=== PATIENT | female | born 1930 ===

== ENCOUNTER 2017-02-14 19:04 | Inpatient (IN) | payer MEDICARE ==
[~2017-02-14] VITALS: Ht 180.3 cm; Wt 63.5 kg
[2017-02-14] MEDS ORDERED: ALBUTEROL2.5 MG/3 M INH (19:08)
[2017-02-14] MEDS ORDERED: ATORVASTATIN CA80 MG ORAL (19:08)
[2017-02-14] MEDS ORDERED: LACTULOSE20 GM/301 ORAL (19:08)
[2017-02-14] MEDS ORDERED: LISINOPRIL40 MG ORAL (19:08)
[2017-02-14] MEDS ORDERED: COLACE100 MG ORAL (19:08)
[2017-02-14] MEDS ORDERED: ATROVENT HFA12.9 GM IH (19:08)
[2017-02-14] MEDS ORDERED: AMLODIPINE BES2.5 MG ORAL (19:08)
[2017-02-14] MEDS ORDERED: NOVOLIN R100 UNIT/1 SUBQ (19:08)
[2017-02-14] MEDS ORDERED: ASPIRIN EC325 MG ORAL (19:08)
--- NOTE | 2017-02-14 19:22 | Emergency Room Report ---
History of Present Illness General Chief Complaint: Altered Level of Consciousness Source: Medical Record Present Illness HPI 86 YOF sent from SNF for "becoming unresponsive" at SNF with ?hypoxia. 911 called. EMS stated low O2 sat, other vitals stable. Patient responsive when they arrived. Allergies: Coded Allergies: METRONIDAZOLE (Verified Allergy, Unknown, 02/14/17) MIDAZOLAM (Verified Allergy, Unknown, 02/14/17) PENICILLINS (Verified Allergy, Unknown, 02/14/17) SULFA (SULFONAMIDE ANTIBIOTICS) (Verified Allergy, Unknown, 02/14/17) Patient History Past Medical History: other - acute respiratory failure on trach, anemia, vascular dementia, HTN, previous CVA Past Surgical History: unable to obtain, other - trach Pertinent Family History: none Social History: Denies: alcohol use, drug use, smoking Now: No Immunizations: UTD Reviewed Nursing Documentation: PMH: Agreed, PSxH: Agreed Nursing Documentation-PMH Hx Cardiac Problems: Yes - Atherosclerosis of aorta, Anemia Hx Hypertension: Yes History Of Psychiatric Problem: Yes - Vascular dementia Review of Systems All Other Systems: limited - unable to obtain, ?dementia Physical Exam Vital Signs Date Time Temp Pulse Resp B/P Pulse Ox O2 Delivery O2 Flow Rate FiO2 02/14/17 18:54 74 20 104/71 100 Ambu-Bag 15.0 Sp02 EP Interpretation: reviewed, normal General Appearance: normal inspection, well appearing, no apparent distress, alert, non-toxic Head: normocephalic, atraumatic Eyes: bilateral eye EOMI, bilateral eye PERRL ENT: normal ENT inspection, other - Trach in place. No air leak Neck: normal inspection, full range of motion, supple, no bony tend Respiratory: normal inspection, lungs clear, normal breath sounds, no rhonchi, no respiratory distress, no retraction, no wheezing Cardiovascular #1: regular rate, rhythm, no edema Gastrointestinal: normal inspection, normal bowel sounds, non tender, soft, no guarding, no hernia Genitourinary: no CVA tenderness Musculoskeletal: normal inspection, back normal, normal range of motion, Ten' s Sign negative Neurologic: normal inspection, alert, responsive, speech normal Psychiatric: normal inspection Skin: normal inspection Lymphatic: normal inspection Medical Decision Making Diagnostic Impression: Primary Impression: Altered level of consciousness Additional Impressions: Sepsis Qualified Codes: A41.9 - Sepsis, unspecified organism Hyperkalemia ER Course 86YO F with episode of AMS. VSS here. Afebrile. Connected to vent. No air leak. ?mucous plug vs sepsis/PNA less likely Labs: Leuks 12k. HyperK. Lactate 2. UA pending CXR with possible right sided PNA Blood Cx pending Empiric Abx given HyperK but no peaked Twaves on ECG. Albuterol given via trach as well as Kayexelate. Endorsed to Dr Lawson for DIONI admission at 826pm EKG Diagnostic Results Rate: normal, other - PVCs Rhythm: NSR ST Segments: no acute changes ASA given to the pt in ED: No Rhythm Strip Diag. Results EP Interpretation: yes Rate: 95 Rhythm: NSR, no ectopy Chest X-Ray Diagnostic Results EP Interpretation: Yes Findings: no pneumothorax, no acute cardiopulmonary disease, other - Rigth sided infilitrate Number of Views: 1 Last Vital Signs Date Time Temp Pulse Resp B/P Pulse Ox O2 Delivery O2 Flow Rate FiO2 02/14/17 18:54 74 20 104/71 100 Ambu-Bag 15.0 Status: improved Disposition: ADMITTED INPATIENT Condition: Serious EDMAR ARRIAGA M.D. Feb 14, 2017 19:22
[2017-02-14 19:59] LABS: BASOPHILS % (AUTO) 1.3 % (0.0-2.0); EOSINOPHILS % (AUTO) 1.1 % (0.0-3.0); LYMPHOCYTES % (AUTO) 19.3 % (20.0-45.0); MEAN CORPUSCULAR HEMOGLOBIN 32.2 PG (27.0-31.0); MEAN CORPUSCULAR HGB CONC 32.8 G/DL (32.0-36.0); MEAN CORPUSCULAR VOLUME 98 FL (80-99); MEAN PLATELET VOLUME 5.7 FL (6.5-10.1); MONOCYTES % (AUTO) 6.9 % (1.0-10.0); NEUTROPHILS % (AUTO) 71.3 % (45.0-75.0); PLATELET COUNT 274 K/UL (150-450); RED BLOOD COUNT 3.12 M/UL (4.20-5.40); RED CELL DISTRIBUTION WIDTH 16.2 % (11.6-14.8); WHITE BLOOD COUNT 11.9 K/UL (4.8-10.8)
[2017-02-14] MEDS ORDERED: LORazepam 1mg tab ORAL ONE (20:00)
[2017-02-14 20:02] VITALS: BP 94/51
[2017-02-14 20:15] LABS: TROPONIN I < 0.30 ng/mL (<=0.30)
[2017-02-14] MEDS ORDERED: Haloperidol 5mg/ml Inj IM ONE (20:15)
[2017-02-14 20:18] LABS: ALANINE AMINOTRANSFERASE 46 U/L (3-33); ALBUMIN/GLOBULIN RATIO 0.4 (1.0-2.7); ASPARTATE AMINO TRANSFERASE 35 U/L (5-40); CALCIUM 10.3 mg/dL (8.6-10.2); CARBON DIOXIDE 39 mEQ/L (20-30); CREATININE 0.7 mg/dL (0.5-0.9); HEMOLYSIS 24; TOTAL PROTEIN 9.1 g/dL (6.6-8.7)
[2017-02-14 20:19] LABS: ANION GAP 6 (5-15); CHLORIDE 102 mEQ/L (98-107); POTASSIUM 5.8 mEQ/L (3.4-4.9); SODIUM 147 mEQ/L (135-145)
[2017-02-14 20:22] LABS: REFLEX LACTIC ACID YES OR NO YES
[2017-02-14] MEDS ORDERED: Sodium Polystyrene Sulfonate 15gm Powder ORAL ONE (20:30)
[2017-02-14] MEDS ORDERED: Clindamycin 900mg 50 ML IVPB ONE (20:30)
[2017-02-14] MEDS ORDERED: Albuterol ud Inhalation HHN ONE (20:30)
[2017-02-14] MEDS ORDERED: Vancomycin 1 GM in NS 275 ML IVPB ONE (20:30)
[2017-02-14] MEDS ORDERED: Vancomycin 1gm inj IVPB ONE (20:34)
[2017-02-14 21:06] LABS: KETONES,URINE NEGATIVE (NEGATIVE); LEUKOCYTE ESTERASE ,URINE 3+ (NEGATIVE); NITRITE,URINE POSITIVE (NEGATIVE); PH,URINE 6 (4.5-8.0); PROTEIN,URINE 3+ (NEGATIVE); UROBILINOGEN,URINE NORMAL MG/DL (0.0-1.0)
[2017-02-14 21:22] LABS: APPEARANCE,URINE VERY CLOUDY
[2017-02-14 21:23] LABS: BACTERIA,URINE MANY /HPF; RBC,URINE TNTC /HPF (0 - 2); SQUAMOUS EPITHELIAL CELL,UR MANY /LPF (NONE/OCC); WBC,URINE TNTC /HPF (0 - 2)
[2017-02-14 21:30] VITALS: BP 127/63
[2017-02-15] VITALS: BP 122/64
[2017-02-15] MEDS ORDERED: Acetaminophen 500mg (ES) tab ORAL PRN (00:45)
[2017-02-15] MEDS ORDERED: Ipratropium 0.02% Inh Soln 2.5ml UD HHN PRN ×2 (01:00)
[2017-02-15] MEDS ORDERED: DuoNeb 0.5-3(2.5)mg/3ml neb HHN PRN (01:45)
[2017-02-15] MEDS ORDERED: Acetaminophen 650mg/20.3ml GT PRN ×3 (02:45→07:30)
[2017-02-15 04:00] VITALS: BP 118/63
[2017-02-15 04:31] LABS: BASOPHILS % (AUTO) 0.6 % (0.0-2.0); EOSINOPHILS % (AUTO) 0.2 % (0.0-3.0); LYMPHOCYTES % (AUTO) 23.8 % (20.0-45.0); MEAN CORPUSCULAR HEMOGLOBIN 30.1 PG (27.0-31.0); MEAN CORPUSCULAR HGB CONC 31.7 G/DL (32.0-36.0); MEAN CORPUSCULAR VOLUME 95 FL (80-99); MEAN PLATELET VOLUME 5.8 FL (6.5-10.1); MONOCYTES % (AUTO) 4.1 % (1.0-10.0); NEUTROPHILS % (AUTO) 71.3 % (45.0-75.0); PLATELET COUNT 280 K/UL (150-450); RED BLOOD COUNT 2.95 M/UL (4.20-5.40); RED CELL DISTRIBUTION WIDTH 16.2 % (11.6-14.8); WHITE BLOOD COUNT 10.1 K/UL (4.8-10.8)
[2017-02-15 04:56] LABS: ALANINE AMINOTRANSFERASE 39 U/L (3-33); ALBUMIN/GLOBULIN RATIO 0.4 (1.0-2.7); ANION GAP 12 (5-15); ASPARTATE AMINO TRANSFERASE 29 U/L (5-40); CALCIUM 9.6 mg/dL (8.6-10.2); CARBON DIOXIDE 33 mEQ/L (20-30); CHLORIDE 100 mEQ/L (98-107); CREATININE 0.6 mg/dL (0.5-0.9); HEMOLYSIS 1; POTASSIUM 4.4 mEQ/L (3.4-4.9); SODIUM 145 mEQ/L (135-145); TOTAL PROTEIN 8.6 g/dL (6.6-8.7)
[2017-02-15] MEDS: NovoLOG Insulin Flexpen SUBQ SCH ×3 (06:07→18:00)
[2017-02-15] MEDS ORDERED: NovoLOG Insulin Flexpen SUBQ SCH (06:30)
[2017-02-15] MEDS ORDERED: Glucagon 1mg Inj IV PRN (07:30)
[2017-02-15 08:00] VITALS: BP 102/59
[2017-02-15] MEDS ORDERED: Atorvastatin 80mg tab ORAL SCH (09:00)
[2017-02-15] MEDS ORDERED: Levofloxacin 500mg tab GT SCH (09:00)
[2017-02-15] MEDS ORDERED: Aspirin EC 325mg tab ORAL SCH (09:00)
[2017-02-15] MEDS ORDERED: Lactulose 20gm/30ml UDC ORAL SCH (09:00)
--- NOTE | 2017-02-15 09:00 | History & Physical ---
History and Physical History & Physicial HPI 86 Year old sent from [facility] for ALOC at [facility]. 911 called. Patient noted to have reduced oxygen saturations. Patient responsive when they arrived. she appears slightly more withdrawn this morning. Allergies: METRONIDAZOLE (Verified Allergy, Unknown, 02/14/17) MIDAZOLAM (Verified Allergy, Unknown, 02/14/17) PENICILLINS (Verified Allergy, Unknown, 02/14/17) SULFA (SULFONAMIDE ANTIBIOTICS) (Verified Allergy, Unknown, 02/14/17) Past Medical History: respiratory failure on trach, anemia, vascular dementia, HTN, previous CVA, atherosclerosis Past Surgical History: GT, trach Pertinent Family History: none Social History: Denies: alcohol use, drug use, smoking; resides at [facility] Reviewed of systems: unable Physical exam WDWN NAD clear breath sounds bilaterally without rhonchi or wheeze trach [id number] without MRG NABS nontender no HSM, GT no CCE slightly withdrawn Laboratory Tests Test 02/14/17 19:45 02/14/17 19:59 02/14/17 20:16 02/15/17 04:00 White Blood Count 11.9 K/UL (4.8-10.8) H 10.1 K/UL (4.8-10.8) Red Blood Count 3.12 M/UL (4.20-5.40) L 2.95 M/UL (4.20-5.40) L Hemoglobin 10.0 G/DL (12.0-16.0) L 8.9 G/DL (12.0-16.0) L Hematocrit 30.6 % (37.0-47.0) L 28.0 % (37.0-47.0) L Mean Corpuscular Volume 98 FL (80-99) 95 FL (80-99) Mean Corpuscular Hemoglobin 32.2 PG (27.0-31.0) H 30.1 PG (27.0-31.0) Mean Corpuscular Hemoglobin Concent 32.8 G/DL (32.0-36.0) 31.7 G/DL (32.0-36.0) L Red Cell Distribution Width 16.2 % (11.6-14.8) H 16.2 % (11.6-14.8) H Platelet Count 274 K/UL (150-450) 280 K/UL (150-450) Mean Platelet Volume 5.7 FL (6.5-10.1) L 5.8 FL (6.5-10.1) L Neutrophils (%) (Auto) 71.3 % (45.0-75.0) 71.3 % (45.0-75.0) Lymphocytes (%) (Auto) 19.3 % (20.0-45.0) L 23.8 % (20.0-45.0) Monocytes (%) (Auto) 6.9 % (1.0-10.0) 4.1 % (1.0-10.0) Eosinophils (%) (Auto) 1.1 % (0.0-3.0) 0.2 % (0.0-3.0) Basophils (%) (Auto) 1.3 % (0.0-2.0) 0.6 % (0.0-2.0) Sodium Level 147 mEQ/L (135-145) H 145 mEQ/L (135-145) Potassium Level 5.8 mEQ/L (3.4-4.9) H 4.4 mEQ/L (3.4-4.9) Chloride Level 102 mEQ/L (98-107) 100 mEQ/L (98-107) Carbon Dioxide Level 39 mEQ/L (20-30) H 33 mEQ/L (20-30) H Anion Gap 6 (5-15) 12 (5-15) Blood Urea Nitrogen 53 mg/dL (7-23) H 54 mg/dL (7-23) H Creatinine 0.7 mg/dL (0.5-0.9) 0.6 mg/dL (0.5-0.9) Estimat Glomerular Filtration Rate mL/min (>60) mL/min (>60) Glucose Level 149 mg/dL (74-106) H 91 mg/dL (74-106) Lactic Acid Level 2.10 mmol/L (0.66-2.22) 2.30 mmol/L (0.66-2.22) H Calcium Level 10.3 mg/dL (8.6-10.2) H 9.6 mg/dL (8.6-10.2) Total Bilirubin 0.2 mg/dL (0.0-1.2) 0.3 mg/dL (0.0-1.2) Aspartate Amino Transf (AST/SGOT) 35 U/L (5-40) 29 U/L (5-40) Alanine Aminotransferase (ALT/SGPT) 46 U/L (3-33) H 39 U/L (3-33) H Alkaline Phosphatase 120 U/L (35-104) H 101 U/L (35-104) Total Creatine Kinase 30 U/L (26-140) Creatine Kinase MB 4.0 ng/mL (< 3.8) H Creatine Kinase MB Relative Index 13.3 Troponin I < 0.30 ng/mL (<=0.30) Total Protein 9.1 g/dL (6.6-8.7) H 8.6 g/dL (6.6-8.7) Albumin 2.8 g/dL (3.5-5.2) L 2.7 g/dL (3.5-5.2) L Globulin 6.3 g/dL 5.9 g/dL Albumin/Globulin Ratio 0.4 (1.0-2.7) L 0.4 (1.0-2.7) L Urine Color Pale yellow Urine Appearance Very cloudy Urine pH 6 (4.5-8.0) Urine Specific [place] 1.015 (1.005-1.035) Urine Protein 3+ (NEGATIVE) H Urine Glucose (UA) Negative (NEGATIVE) Urine Ketones Negative (NEGATIVE) Urine Occult Blood 5+ (NEGATIVE) H Urine Nitrite Positive (NEGATIVE) H Urine Bilirubin Negative (NEGATIVE) Urine Urobilinogen Normal MG/DL (0.0-1.0) Urine Leukocyte Esterase 3+ (NEGATIVE) H Urine RBC Tntc /HPF (0 - 2) H Urine WBC Tntc /HPF (0 - 2) H Urine Squamous Epithelial Cells Many /LPF (NONE/OCC) H Urine Bacteria Many /HPF (NONE) H IMPRESSION UTI anemia azotemia respiratory failure trach gt PLAN antibiotics hydrate head CT ventilator snf meds dc back when stable impression, plan, and exam edited and reviewed in detail care discussed with BERNY CANTOR Feb 15, 2017 09:00
[2017-02-15] MEDS: Zinc Sulfate 220mg cap GT SCH (09:09)
[2017-02-15] MEDS: Lactulose 20gm/30ml UDC GT SCH ×3 (09:09→18:10)
[2017-02-15] MEDS: Ascorbic Acid 500mg tab GT SCH ×2 (09:09→18:10)
[2017-02-15] MEDS: Docusate 100mg tablet GT SCH ×2 (09:10→18:10)
[2017-02-15] MEDS: Atorvastatin 80mg tab GT SCH (09:10)
[2017-02-15] MEDS ORDERED: Cefepime HCl 1 GM in NS 55 ML IVPB SCH (10:00)
[2017-02-15] MEDS: Meropenem 500 MG in NS 55 ML IVPB SCH ×2 (13:47→22:12)
[2017-02-15 16:00] VITALS: BP 98/55
[2017-02-15] MEDS ORDERED: Tubing IV Secondary IV ONE (17:37)
[2017-02-15] MEDS ORDERED: 1/2 NS 1000ml IV ONE (17:37)
--- NOTE | 2017-02-15 18:48 | Consultation ---
DATE OF CONSULTATION: 02/15/2017 INFECTIOUS DISEASES CONSULTATION CONSULTING PHYSICIAN: Rehana Vines M.D. REFERRING PHYSICIAN: Jimmy Lawson M.D. REASON FOR CONSULTATION: Urinary tract infection. HISTORY OF PRESENTING ILLNESS: This is an 86-year-old lady with history of respiratory failure, status post tracheostomy, hypertension, and CVA, who came in with altered level of consciousness. She was seen in [facility], where she was found to have a urinary tract infection and an Infectious Diseases consultation has been obtained for antibiotics. PAST MEDICAL HISTORY: 1. History of respiratory failure, status post tracheostomy. 2. Anemia. 3. Dementia. 4. Hypertension. 5. CVA. 6. Atherosclerosis. 7. Status post G-tube placement. MEDICATIONS: As an inpatient, the patient is on docusate, ascorbic acid, Coreg, multivitamin, Prevacid, zinc sulfate, amlodipine, aspirin, Lipitor, lactulose, Levaquin, Tylenol, Glucagon, insulin, albuterol, and Atrovent. ALLERGIES: 1. Penicillin. 2. Sulfa. 3. Midazolam. 4. Flagyl. SOCIAL HISTORY: No history of smoking, alcohol, or drug use. FAMILY HISTORY: Unknown. REVIEW OF SYSTEMS: Unable to obtain currently. PHYSICAL EXAMINATION: VITAL SIGNS: Temperature of 97.9 degrees, T-max of 97.9 degrees, pulse of 80, respiratory rate 22, blood pressure 102/59, and O2 saturation of 98%. HEENT: Pupils equally reactive to light and accommodation. Mouth appears clean without thrush. NECK: Supple. No adenopathy. No JVD. Tracheostomy site appears clean. CARDIOVASCULAR: Regular rate and rhythm. No murmurs. LUNGS: Clear to auscultation bilaterally. No crackles. No wheezes. ABDOMEN: Soft and nontender. No organomegaly. G-tube site appears clean. EXTREMITIES: No cyanosis, no clubbing, and no edema. LABORATORY DATA: White count of 11.9 yesterday, white count of 10.1 today, hemoglobin 8.9, hematocrit 28, MCV 95, and platelet count of 218,000 with neutrophils of 71%. Sodium 145, potassium 4.4, chloride 100, bicarb 33, BUN 54, creatinine 0.6, glucose 91, and calcium 9.6. Total bilirubin 0.3. AST 29, ALT 39, and alkaline phosphatase 101. Total protein 8.6. Albumin 2.7. UA is showing [id number]-count white cells. Urine cultures are pending. Chest x-ray showed a possible right-sided infiltrate. ASSESSMENT: 1. This is an 86-year-old lady with history of respiratory failure, status post tracheostomy, hypertension, cerebrovascular accident, who comes in and was found to have a urinary tract infection. 2. She also probably has pneumonia. 3. Hypertension. PLAN: 1. discontinue Levaquin. 2. We will start the patient on meropenem. 3. We will follow up cultures and adjust antibiotics accordingly. I would like to thank, Dr. Lawson, for this consultation. Rehana Vines M.D. DR: ERMELINDA JOB#: [id number] CC: Jimmy Lawson M.D.
[2017-02-15 20:00] VITALS: BP 121/69
[2017-02-16] VITALS (7 sets, daily range): BP systolic 118–157; BP diastolic 63–75
[2017-02-16] MEDS: NovoLOG Insulin Flexpen SUBQ SCH ×4 (00:21→18:05)
[2017-02-16 04:30] LABS: MEAN CORPUSCULAR HEMOGLOBIN 29.5 PG (27.0-31.0); MEAN CORPUSCULAR HGB CONC 32.4 G/DL (32.0-36.0); MEAN CORPUSCULAR VOLUME 91 FL (80-99); MEAN PLATELET VOLUME 6.2 FL (6.5-10.1); PLATELET COUNT 215 K/UL (150-450); RED BLOOD COUNT 2.69 M/UL (4.20-5.40); RED CELL DISTRIBUTION WIDTH 16.1 % (11.6-14.8); WHITE BLOOD COUNT 6.7 K/UL (4.8-10.8)
[2017-02-16 04:47] LABS: ANION GAP 12 (5-15); CALCIUM 8.8 mg/dL (8.6-10.2); CARBON DIOXIDE 32 mEQ/L (20-30); CHLORIDE 100 mEQ/L (98-107); CREATININE 0.5 mg/dL (0.5-0.9); HEMOLYSIS 1; SODIUM 144 mEQ/L (135-145)
[2017-02-16 04:56] LABS: POTASSIUM 2.7 mEQ/L (3.4-4.9)
[2017-02-16] MEDS: Meropenem 500 MG in NS 55 ML IVPB SCH ×3 (05:47→20:41)
[2017-02-16] MEDS: KCl 10% 40mEq/30ml liquid GT SCH ×2 (06:59→10:36)
--- NOTE | 2017-02-16 07:09 | Infectious Diseases Prog Note ---
Assessment/Plan Assessment/Plan A; UTI VDRF Dementia Anemia s/p tracheostomy s/p GT Penicillin allergy P; continue Meropenem Subjective ROS Limited/Unobtainable: Yes Allergies: Coded Allergies: METRONIDAZOLE (Verified Allergy, Unknown, 02/14/17) MIDAZOLAM (Verified Allergy, Unknown, 02/14/17) PENICILLINS (Verified Allergy, Unknown, 02/14/17) SULFA (SULFONAMIDE ANTIBIOTICS) (Verified Allergy, Unknown, 02/14/17) Objective Vital Signs Last 24 Hour Vital Signs Date Time Temp Pulse Resp B/P Pulse Ox O2 Delivery O2 Flow Rate FiO2 02/16/17 05:01 80 24 30 02/16/17 04:00 30 02/16/17 04:00 96.8 68 22 157/70 100 Mechanical Ventilator 30 02/16/17 03:35 48 02/16/17 02:55 92 26 30 02/16/17 00:58 86 25 30 02/16/17 00:41 97.9 73 24 155/75 100 Mechanical Ventilator 30 02/16/17 00:00 30 02/15/17 23:30 73 02/15/17 22:59 84 24 30 02/15/17 20:50 79 24 30 02/15/17 20:46 84 145/76 02/15/17 20:00 84 02/15/17 20:00 97.7 86 18 121/69 100 Mechanical Ventilator 30 02/15/17 20:00 30 02/15/17 19:44 88 34 30 02/15/17 16:42 72 17 30 02/15/17 16:00 97.9 73 18 98/55 98 Mechanical Ventilator 30 02/15/17 16:00 30 02/15/17 16:00 73 02/15/17 14:39 67 20 30 02/15/17 13:15 68 22 30 02/15/17 12:04 30 02/15/17 12:00 75 02/15/17 11:12 80 22 30 02/15/17 09:14 75 23 30 02/15/17 09:00 84 102/59 02/15/17 09:00 84 102/59 02/15/17 08:00 82 02/15/17 08:00 97.9 84 22 102/59 98 Mechanical Ventilator 30 02/15/17 08:00 30 02/15/17 07:10 78 19 30 Height (Feet): 5 Height (Inches): 11.00 Weight (Pounds): 140 HEENT: status post trach Respiratory/Chest: lungs clear, other - on ventilator Cardiovascular: normal rate Abdomen: soft, non tender, other - GT feeding Extremities: no edema Neurologic/Psychiatric: other - sleeping Microbiology Date/Time Source Procedure Growth Status 02/14/17 19:25 Blood Blood Culture - Preliminary NO GROWTH AFTER 24 HOURS Resulted 02/14/17 19:15 Blood Blood Culture - Preliminary NO GROWTH AFTER 24 HOURS Resulted Laboratory Tests Test 02/16/17 03:15 White Blood Count 6.7 K/UL (4.8-10.8) Red Blood Count 2.69 M/UL (4.20-5.40) L Hemoglobin 7.9 G/DL (12.0-16.0) L Hematocrit 24.5 % (37.0-47.0) L Mean Corpuscular Volume 91 FL (80-99) Mean Corpuscular Hemoglobin 29.5 PG (27.0-31.0) Mean Corpuscular Hemoglobin Concent 32.4 G/DL (32.0-36.0) Red Cell Distribution Width 16.1 % (11.6-14.8) H Platelet Count 215 K/UL (150-450) Mean Platelet Volume 6.2 FL (6.5-10.1) L Neutrophils (%) (Auto) % (45.0-75.0) Lymphocytes (%) (Auto) % (20.0-45.0) Monocytes (%) (Auto) % (1.0-10.0) Eosinophils (%) (Auto) % (0.0-3.0) Basophils (%) (Auto) % (0.0-2.0) Sodium Level 144 mEQ/L (135-145) Potassium Level 2.7 mEQ/L (3.4-4.9) *L Chloride Level 100 mEQ/L (98-107) Carbon Dioxide Level 32 mEQ/L (20-30) H Anion Gap 12 (5-15) Blood Urea Nitrogen 46 mg/dL (7-23) H Creatinine 0.5 mg/dL (0.5-0.9) Estimat Glomerular Filtration Rate mL/min (>60) Glucose Level 150 mg/dL (74-106) H Calcium Level 8.8 mg/dL (8.6-10.2) Current Medications Medications (Trade) Dose Ordered Sig/Abdelrahman Route PRN Reason Start Time Stop Time Status Last Admin Dose Admin Acetaminophen (Tylenol) 650 mg Q4H PRN GT Moderate Pain (Pain Scale 4-6) 02/15/17 07:30 03/17/17 07:29 02/16/17 02:13 Acetaminophen 500 mg 500 mg Q6H PRN GT mild pain/Temp > 100.5 02/15/17 07:16 03/17/17 02:44 Albuterol/ Ipratropium (DuoNeb 0.5-3(2.5)mg/3ml) 3 ml Q4H PRN HHN shortness of breath 02/15/17 01:45 02/20/17 01:44 Amlodipine Besylate (Norvasc) 10 mg DAILY GT 02/15/17 09:00 03/17/17 08:59 Ascorbic Acid (Vitamin C) 500 mg BID GT 02/15/17 09:00 03/17/17 08:59 02/15/17 18:10 Aspirin (ASA) 325 mg DAILY GT 02/15/17 09:00 03/17/17 08:59 02/15/17 09:09 Atorvastatin Calcium (Lipitor) 80 mg DAILY GT 02/15/17 09:00 03/17/17 08:59 02/15/17 09:10 Carvedilol (Coreg) 3.125 mg EVERY 12 HOURS GT 02/15/17 09:00 03/17/17 08:59 02/15/17 20:46 Dextrose (Dextrose 50%) STAT PRN IV Hypoglycemia 02/15/17 00:45 03/17/17 00:44 Docusate Sodium (Colace) 100 mg BID GT 02/15/17 09:00 03/17/17 08:59 02/15/17 18:10 Glucagon (Glucagon) 1 mg PRN PRN IV BS<70 02/15/17 07:30 03/17/17 07:29 Insulin Aspart (NovoLOG) per DR. Lawson to fol... EVERY 6 HOURS SUBQ 02/15/17 18:00 03/17/17 17:59 02/16/17 00:21 Ipratropium [place] (Atrovent) 500 mcg Q6H PRN HHN Shortness of Breath 02/15/17 01:00 02/20/17 00:59 Lactulose (Cephulac) 20 gm TID GT 02/15/17 09:00 03/17/17 08:59 02/15/17 18:10 Lansoprazole (Prevacid) 30 mg DAILY GT 02/15/17 09:00 03/17/17 08:59 02/15/17 09:10 Meropenem/Sodium Chloride (Merrem/Sodium Chloride) 55 ml @ 110 mls/hr EVERY 8 HOURS IVPB 02/15/17 14:00 02/20/17 13:59 02/16/17 05:47 Multivitamins (Multivitamins) 1 tab DAILY ORAL 02/15/17 09:00 03/17/17 08:59 02/15/17 09:09 Potassium Chloride (KCl 10% 40mEq Oral solution) 40 meq Q4H GT 02/16/17 06:30 02/16/17 10:31 02/16/17 06:59 Sodium Chloride 1,000 ml @ 100 mls/hr Q10H IV 02/15/17 10:00 03/17/17 09:59 02/16/17 05:47 Zinc Sulfate (Zinc Sulfate) 220 mg DAILY GT 02/15/17 09:00 03/17/17 08:59 02/15/17 09:09 JOSE NOBLE Feb 16, 2017 07:09
[2017-02-16 08:05] LABS: BASOPHILS % (AUTO) 1.5 % (0.0-2.0); EOSINOPHILS % (AUTO) 2.2 % (0.0-3.0); LYMPHOCYTES % (AUTO) 38.7 % (20.0-45.0); MEAN CORPUSCULAR HEMOGLOBIN 29.7 PG (27.0-31.0); MEAN CORPUSCULAR HGB CONC 32.4 G/DL (32.0-36.0); MEAN CORPUSCULAR VOLUME 92 FL (80-99); MEAN PLATELET VOLUME 6.2 FL (6.5-10.1); MONOCYTES % (AUTO) 5.8 % (1.0-10.0); NEUTROPHILS % (AUTO) 51.8 % (45.0-75.0); PLATELET COUNT 226 K/UL (150-450); RED BLOOD COUNT 2.73 M/UL (4.20-5.40); RED CELL DISTRIBUTION WIDTH 16.3 % (11.6-14.8); WHITE BLOOD COUNT 6.7 K/UL (4.8-10.8)
[2017-02-16] MEDS: Zinc Sulfate 220mg cap GT SCH (08:10)
[2017-02-16] MEDS: Docusate 100mg tablet GT SCH ×2 (08:10→18:00)
[2017-02-16] MEDS: Ascorbic Acid 500mg tab GT SCH ×2 (08:10→18:04)
[2017-02-16] MEDS: Lactulose 20gm/30ml UDC GT SCH ×3 (08:10→18:00)
[2017-02-16] MEDS: Atorvastatin 80mg tab GT SCH (08:12)
[2017-02-16] MEDS ORDERED: 1/2 NS 1000ml IV ONE (08:37)
--- NOTE | 2017-02-16 09:19 | General Progress Note ---
Assessment/Plan Assessment/Plan IMPRESSION UTI anemia azotemia respiratory failure trach gt PLAN antibiotics hydrate potassium transfuse head CT ventilator snf meds dc back when stable, possibly in am impression, plan, and exam edited and reviewed in detail care discussed with RN Subjective ROS Limited/Unobtainable: Yes Allergies: Coded Allergies: METRONIDAZOLE (Verified Allergy, Unknown, 02/14/17) MIDAZOLAM (Verified Allergy, Unknown, 02/14/17) PENICILLINS (Verified Allergy, Unknown, 02/14/17) SULFA (SULFONAMIDE ANTIBIOTICS) (Verified Allergy, Unknown, 02/14/17) Objective Last 24 Hour Vital Signs Date Time Temp Pulse Resp B/P Pulse Ox O2 Delivery O2 Flow Rate FiO2 02/16/17 08:11 64 137/74 02/16/17 08:11 64 137/74 02/16/17 08:00 97.0 72 21 137/74 100 Mechanical Ventilator 30 02/16/17 08:00 69 02/16/17 08:00 30 02/16/17 07:28 58 21 30 02/16/17 05:01 80 24 30 02/16/17 04:00 30 02/16/17 04:00 96.8 68 22 157/70 100 Mechanical Ventilator 30 02/16/17 03:35 48 02/16/17 02:55 92 26 30 02/16/17 00:58 86 25 30 02/16/17 00:41 97.9 73 24 155/75 100 Mechanical Ventilator 30 02/16/17 00:00 30 02/15/17 23:30 73 02/15/17 22:59 84 24 30 02/15/17 20:50 79 24 30 02/15/17 20:46 84 145/76 02/15/17 20:00 84 02/15/17 20:00 97.7 86 18 121/69 100 Mechanical Ventilator 30 02/15/17 20:00 30 02/15/17 19:44 88 34 30 02/15/17 16:42 72 17 30 02/15/17 16:00 97.9 73 18 98/55 98 Mechanical Ventilator 30 02/15/17 16:00 30 02/15/17 16:00 73 02/15/17 14:39 67 20 30 02/15/17 13:15 68 22 30 02/15/17 12:04 30 02/15/17 12:00 75 02/15/17 11:12 80 22 30 Intake and Output 02/15/17 02/16/17 19:00 07:00 Intake Total 1360 ml 2025 ml Output Total 200 ml 1351 ml Balance 1160 ml 674 ml Intake Free Water 100 ml 50 ml IV Total 800 ml 1315 ml Tube Feeding 410 ml 610 ml Other 50 ml 50 ml Output Urine Total 200 ml 1350 ml Stool Total 1 ml # Bowel Movements 1 1 Laboratory Tests 02/16/17 03:15: White Blood Count 6.7, Red Blood Count 2.69L, Hemoglobin 7.9L, Hematocrit 24.5L , Mean Corpuscular Volume 91, Mean Corpuscular Hemoglobin 29.5, Mean Corpuscular Hemoglobin Concent 32.4, Red Cell Distribution Width 16.1H, Platelet Count 215, Mean Platelet Volume 6.2L, Neutrophils (%) (Auto) , Lymphocytes (%) (Auto) , Monocytes (%) (Auto) , Eosinophils (%) (Auto) , Basophils (%) (Auto) , Sodium Level 144, Potassium Level 2.7*L, Chloride Level 100, Carbon Dioxide Level 32H, Anion Gap 12, Blood Urea Nitrogen 46H, Creatinine 0.5, Estimat Glomerular Filtration Rate , Glucose Level 150H, Calcium Level 8.8 02/16/17 07:50: White Blood Count 6.7, Red Blood Count 2.73L, Hemoglobin 8.1L, Hematocrit 25.1L , Mean Corpuscular Volume 92, Mean Corpuscular Hemoglobin 29.7, Mean Corpuscular Hemoglobin Concent 32.4, Red Cell Distribution Width 16.3H, Platelet Count 226, Mean Platelet Volume 6.2L, Neutrophils (%) (Auto) 51.8, Lymphocytes (%) (Auto) 38.7, Monocytes (%) (Auto) 5.8, Eosinophils (%) (Auto) 2.2, Basophils (%) (Auto) 1.5 Height (Feet): 5 Height (Inches): 11.00 Weight (Pounds): 140 Objective WDWN NAD clear breath sounds bilaterally without rhonchi or wheeze; trach [id number] without MRG NABS nontender no HSM; GT no CCE nonfocal BERNY GARBER Feb 16, 2017 09:19
[2017-02-16] MEDS ORDERED: Tubing Blood Filter IV ONE (20:59)
[2017-02-16] MEDS ORDERED: NS 275ml ONE (20:59)
--- NOTE | 2017-02-17 08:05 | Diagnostic Imaging Report ---
Indication: Shortness of breath Technique: XRAY CHEST 1 V Comparison: None Findings: Examination is limited by patient rotation. Tracheostomy is present. Cardiac silhouette is prominent. Atherosclerotic changes are seen. Bilateral interstitial and bibasilar linear opacities are noted. There is slight elevation of the right hemidiaphragm. Degenerative changes of the spine are noted. Impression: Patient rotation limiting evaluation. Mild bilateral interstitial probable edema. Bibasilar atelectasis with infiltrate or small effusion in the right base not excluded. Clinical correlation/followup recommended.
--- NOTE | 2017-02-17 08:45 | Diagnostic Imaging Report ---
Indication: Cerebrovascular accident Technique: Continuous helical CT scanning of the head was performed utilizing automated exposure control without intravenous contrast material. Axial and coronal reconstructions were obtained. Comparison: None available CT dose: Total DLP 1404 mGycm; CTDI vol 70.4 mGy Findings: There is no acute intracranial hemorrhage, mass effect or cortical edema. The ventricles, cisterns and sulci are prominent consistent with atrophy. Periventricular hypoattenuation is seen, a nonspecific finding. There is a 7 mm linear calcification of the right parietal lobe. There is an old lacunar infarct of the right caudate head. The posterior fossa and fourth ventricle are unremarkable. Sellar and suprasellar regions are grossly unremarkable. Right mastoids are opacified. No focal lesions of the bony calvarium or soft tissues of the scalp are seen. Impression: No evidence of acute intracranial hemorrhage, mass effect or cortical edema. MRI may be obtained for more sensitive evaluation as clinically indicated. Atrophy and nonspecific periventricular hypoattenuation suggestive of chronic ischemic microvascular changes. Lacunar infarct of the right caudate head. Approximately 7 mm area of linear increased density and calcification in the right parietal lobe may be postinflammatory/granulomatous. Comparison to prior study should be made if available. Followup recommended. The CT scanner at [facility] is accredited by the [employer] and the scans are performed using protocols designed to limit radiation exposure to as low as reasonably achievable to attain images of sufficient resolution adequate for diagnostic evaluation.
--- NOTE | 2017-02-17 09:31 | Discharge Summary ---
Discharge Summary Hospital Course Date of Admission Feb 14, 2017 at 20:46 Date of Discharge Feb 16, 2017 at 21:00 Admitting Diagnosis hypoxia ARSENIO Gonsalez is a 86 year old female who was admitted on Feb 14, 2017 at 20:46 for Hypoxia EMS stated low O2 sat, other vitals stable. Patient responsive when they arrived. Patient History Past Medical History: other - acute respiratory failure on trach, anemia, vascular dementia, HTN, previous CVA Past Surgical History: unable to obtain, other - trach Pertinent Family History: none Social History: Denies: alcohol use, drug use, smoking Now: No Immunizations: UTD Reviewed Nursing Documentation: PMH: Agreed, PSxH: Agreed Nursing Documentation-PMH Hx Cardiac Problems: Yes - Atherosclerosis of aorta, Anemia Hx Hypertension: Yes History Of Psychiatric Problem: Yes - Vascular dementia Consultations INFECTIOUS DISEASE CONSULTATION: Thee Tellez M.D. Procedures Service Date: 02/15/17 Procedure: CT Head no Contrast Indication: Cerebrovascular accident Impression: No evidence of acute intracranial hemorrhage, mass effect or cortical edema. MRI may be obtained for more sensitive evaluation as clinically indicated. Atrophy and nonspecific periventricular hypoattenuation suggestive of chronic ischemic microvascular changes. Lacunar infarct of the right caudate head. Approximately 7 mm area of linear increased density and calcification in the right parietal lobe may be postinflammatory/granulomatous. Hospital Course Medical Decision Making Diagnostic Impression: Primary Impression: Altered level of consciousness Additional Impressions: Sepsis Qualified Codes: A41.9 - Sepsis, unspecified organism Hyperkalemia ER Course 86YO F with episode of AMS. Vital signs stable upon admission. Patient connected to vent with no air leak. ?mucous plug vs sepsis/PNA less likely Labs: Leukocytosis 12k. Hyperkalemia. Lactate 2. UA pending CXR with possible right sided PNA Blood Cx pending Empiric Abx given HyperK but no peaked T-waves on ECG. Albuterol given via trach as well as Kayexalate. Hospital Course Primary Initial Diagnosis UTI anemia azotemia respiratory failure trach gt PLAN antibiotics hydrate head CT ventilator snf meds dc back when stable INFECTIOUS DISEASE CONSULTATION: Rehana Vines M.D., Momo Rivera M.D. LABORATORY DATA: White count of 11.9 yesterday, white count of 10.1 today, hemoglobin 8.9, hematocrit 28, MCV 95, and platelet count of 218,000 with neutrophils of 71%. Sodium 145, potassium 4.4, chloride 100, bicarb 33, BUN 54, creatinine 0.6, glucose 91, and calcium 9.6. Total bilirubin 0.3. AST 29, ALT 39, and alkaline phosphatase 101. Total protein 8.6. Albumin 2.7. UA is showing lbo-odutytsm-vl-count white cells. Urine cultures are pending. Chest x-ray showed a possible right-sided infiltrate. ASSESSMENT: 1. This is an 86-year-old lady with history of respiratory failure, status post tracheostomy, hypertension, cerebrovascular accident, who comes in and was found to have a urinary tract infection. 2. She also probably has pneumonia. 3. Hypertension. PLAN: 1. Discontinue Levaquin. 2. We will start the patient on meropenem. 3. We will follow up cultures and adjust antibiotics accordingly. FINAL COURSE IMPRESSION UTI anemia azotemia respiratory failure trach gt PLAN antibiotics >> >> PCN allergy, continue Meropenem per ID hydrate potassium transfuse head CT ventilator snf meds dc back when stable, possibly in am Discharge Condition Upon Discharge: stable Discharge Disposition Patient was discharged to SNF. Please refer to the nursing medication reconciliation list. Discharge Diagnoses: (1) UTI (urinary tract infection) (2) Anemia (3) Azotemia (4) Respiratory failure (5) Tracheostomy present (6) G tube feedings (7) Pneumonia Discharge Instructions Discharge Instructions Special Instructions NURSE NOTES: 1909- received pt. awake on bed; alert and oriented x 3; with portex 7 connected to mechanical ventilator fi02 30%, ac- 12, tv- 500, peep- 5 cm; suctioned secretions as needed; on cardiac monitoring showing sinus rhythm; on npo observed; with jevity 1.2 x 70 cc/hr via gastrostomy tube with head elevation maintained; with moore catheter to urine bag in place; on glucose monitoring every 6 hours; siderails x 2 are up; bed alarm is on; call light is within reach; Addendum: 02/16/17 at 2230 by ROGER MCCORMICK RN 2114- report and discharge papers given to transport nurse accompanied by ambulance personnel via gurney; cardiac monitoring removed; jevity feeding stopped; portex hooked to ambubag; 2124- discharged pt. accompanied by transport personnel; I have been assigned to the discharge summary of this patient and did not provide any care for the patient. Jenny Evans NP, N.P. Feb 17, 2017 09:31
--- NOTE | 2017-02-19 16:18 | Cardiology Report ---
APPROVED REPORT EKG Measurement Heart [id number] Sinus rhythm with occasional premature ventricular complexes and fusion complexes Nonspecific intraventricular conduction delay Borderline ECG
== END 2017-02-16 21:00 | DRG 208 ==
LOC: ENRESERVTM → ENRESERVDT → EDBD 19:04 → EMR 19:36 → EDBEDREQ 20:36 → 2W 20:46
PROC: 5A1945Z Respiratory Ventilation, 24-96 Consecutive Hours (ICD-10-PCS; principal; 2017-02-14)
PROC: 30233N1 Transfusion of Nonautologous Red Blood Cells into Peripheral Vein, Percutaneous Approach (ICD-10-PCS; 2017-02-16)
DX: J96.91 Respiratory failure, unspecified with hypoxia (principal); J18.9 Pneumonia, unspecified organism; Z43.0 Encounter for attention to tracheostomy; N39.0 Urinary tract infection, site not specified; F01.50 Vascular dementia, unspecified severity, without behavioral disturbance, psychotic disturbance, mood disturbance, and anxiety; Z43.1 Encounter for attention to gastrostomy; D64.9 Anemia, unspecified; I10 Essential (primary) hypertension; Z86.73 Personal history of transient ischemic attack (TIA), and cerebral infarction without residual deficits; Z88.0 Allergy status to penicillin; Z88.2 Allergy status to sulfonamides; Z88.8 Allergy status to other drugs, medicaments and biological substances; I70.0 Atherosclerosis of aorta
CPT/HCPCS: 36415; 70450; 71010; 80048; 80053; 81003; 82550; 82553; 82962; 83605; 84484; 85025; 86850; 86900; 86901; 86920; 87040; 87081; 87086; 87181; 93005; 94002; 94003; J1815; S0077